=== PATIENT | female | born 1980 | race Caucasian/White ===

== ENCOUNTER 2021-03-25 18:44 | Emergency (ER) | payer OTHER ==
[~2021-03-25] VITALS: Ht 175.3 cm; Wt 81.7 kg
[~2021-03-25 18:44] MED LIST: ACETAMINOPHEN-1 EAC1 PO; ALBUTEROL INHAL17 GM IH; AMBIEN 10 MG TA10 MG PO; AMLODIPINE BESY10 MG; ATIVAN; AUGMENTIN 875875 MG PO; DARVOCET-N 1001 EACH PO; DIOVAN40 MG PO; FLEXERIL PO; HYDROCODON-ACE1 EAC8 PO; IBUPROFEN 200200 M1; IBUPROFEN 600600 M1 PO; IBUPROFEN 800800 M1 PO; MEDROLDOSEPACK PO; MICROGESTIN1 EAC1 PO; NAMENDA 10 MG T10 MG PO; NAPRELAN750 MG; NORCO 5-325 TA1 EACH PO; PREDNISONE 20 M20 MG PO; PROAIR HFA8.5 GM IH; PROMETHAZINE-C120 ML PO; PROVENTIL IH; RELENZA5 MG PO; SOMA250 MG PO; TESSALON200 MG PO; TORADOL 10 MG T10 MG PO; ULTRAM 50MG TAB50 MG PO; XANAX XR1 MG PO; ZANAFLEX4 M1 PO; ZOFRAN ODT4 MG PO; ZPAK PO
[2021-03-25] MEDS ORDERED: LEXAPRO 10 MG T10 M2 PO (19:07)
[2021-03-25] MEDS ORDERED: REGLAN 5 MG TAB5 MG PO (19:08)
[2021-03-25 20:42] LABS: ABSOLUTE NEUTROPHILS 3.8 thou/uL (1.4-8.2); BASOPHILS 1.2 % (0.0-2.0); EOSINOPHILS 1.8 % (0.0-3.0); HEMATOCRIT 39.1 % (37.0-47.0); HEMOGLOBIN 13.3 gm/dL (12.0-15.0); LYMPHOCYTES 36.8 % (24.0-44.0); MCH 32.8 pg (26.0-34.0); MCV 96.4 fL (80.0-100.0); MONOCYTES 4.2 % (1.0-8.0); PLATELET COUNT 207 thou/uL (150-400); RBC 4.05 mil/uL (4.20-5.00); RDW 17.1 % (10.5-14.5); WBC 6.8 thou/uL (4.0-11.0)
[2021-03-25 20:49] LABS: ANION GAP 8 mmol/L (7-16); BUN 9 mg/dL (7-18); CALCIUM 8.8 mg/dL (8.5-10.1); CHLORIDE 103 mmol/L (98-107); CO2 29 mmol/L (21-32); CREATININE 0.8 mg/dL (0.6-1.0); GLUCOSE 92 mg/dL (74-106); POTASSIUM 3.7 mmol/L (3.5-5.1); SODIUM 140 mmol/L (136-145)
[2021-03-25 20:59] LABS: ALBUMIN 3.5 g/dL (3.4-5.0); SGOT 47 U/L (15-37); SGPT 51 U/L (14-59); TOTAL BILIRUBIN 0.7 mg/dL (0.2-1.0); TOTAL PROTEIN 7.1 g/dL (6.4-8.2); TROPONIN-I <0.06 ng/mL (<0.06)
[2021-03-25] MEDS ORDERED: NORCO5 PO (21:12)
[2021-03-25 21:26] VITALS: BP 163/100
--- NOTE | 2021-03-26 08:13 | EKG ---
[place] [address] [facility] [place] [address] ELECTROCARDIOGRAM REPORT Name: STIVEN AMBRIZ Room #: DEP [facility]#: [id number] Admission: 03/25/21 Attend Phys: Discharge: 03/25/21 Date of : 78 Report #: [id number] [facility] ED Test Date: 2021-03-25 Test Time: 18:52:38 Pat Name: STIVEN AMBRIZ Department: Room: Gender: F House Cleaner: JCHAISUSI : 1980 Requested By: Paula Smith Order Number: [id number] MD: Eagle Rebolledo Measurements Intervals [place] Rate: 127 P: 70 SD: 136 QRS: 63 QRSD: 96 T: -20 QT: 311 QTc: 453 Interpretive Statements Sinus tachycardia Probable left atrial enlargement RSR' in V1 or V2, right VCD or RVH Compared to ECG 09/28/2010 13:41:28 RSR' in V1 or V2 now present Sinus rhythm no longer present Electronically Signed On 03-26-2021 8:13:24 CDT by Eagle Rebolledo [email or web address] <ELECTRONICALLY SIGNED> By: Eagle Rebolledo MD, FACC 03/26/21 0813 185 51 Eagle Rebolledo MD, [facility] /EPI
== END 2021-03-25 21:35 | disposition home or self-care (01) ==
LOC: ER 18:44
PROVIDERS: Physician Assistant
DX: M25.512 Pain in left shoulder (principal); R42 Dizziness and giddiness; F17.210 Nicotine dependence, cigarettes, uncomplicated